=== PATIENT | male | born 1950 | race Caucasian/White ===

== ENCOUNTER 2019-11-12 06:11 | Day surgery (SDC) | payer OTHER ==
[~2019-11-12] VITALS: Ht 182.9 cm; Wt 102.5 kg
[~2019-11-12 06:11] MED LIST: ADULT LOW DOSE81 MG PO; BENTYL 10 MG CA10 M1 PO; CEFDINIR300 MG PO; CIPROFLOXACIN500 M1 PO; CREON DR 24,001 EACH PO; FISHOIL; FLOMAX0.4 MG PO; FLONASE 0.05%50 MCG NARES; LIPITOR40 MG PO; LOSARTAN POTASS50 MG PO; MULTIVITAMINS; NORCO 5-325 TA1 EACH PO; NORVASC10 MG PO; PRINIVIL10 MG PO; PROTONIX40 M1 PO; SIMVASTATIN40 MG PO; TOPAMAX
[2019-11-12 06:35] VITALS: BP 121/79
--- NOTE | 2019-11-12 08:45 | H ---
[facility] [place] [address] HISTORY AND PHYSICAL Name: ADRIANA BHATTI Room #: 150-2 [facility]#: [id number] Admission: 11/12/19 Attend Phys: Gavin Cheney MD Discharge: Date of : 54 Report #: [id number] THIS REPORT FOR: cc: Chris Garcia MD, Michael D. MD Shapiro,Gavin Saleh MD ~ CC: FAM unknown Gavin Cheney His procedure is scheduled for the November 11. HISTORY OF PRESENT ILLNESS: The patient has difficulty breathing through his nose. He has trouble taking deep breaths. He has nasal congestion, clogged sensation, history of nosebleeds. A CT scan of his sinuses shows a severely deviated nasal septum to the right side with mucous membrane thickening in the maxillary and ethmoid sinuses. 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 PAST MEDICAL HISTORY: Otherwise, significant for high blood pressure. MEDICATIONS: Losartan, pantoprazole, atorvastatin, aspirin, amlodipine. ALLERGIES: He has no known drug allergies. PHYSICAL EXAMINATION: He has a severely deviated nasal septum to the right side with the septum almost touching the lateral wall of the nose with some crusting and irritation anteriorly. His oropharynx and oral cavity were clear. IMPRESSION: Nasal airway obstruction with deviated nasal septum with chronic maxillary and ethmoid sinusitis. PLAN: Nasal septoplasty, endoscopic bilateral maxillary antrostomies and anterior ethmoidectomies. <ELECTRONICALLY SIGNED> By: Gavin Cheney MD 11/12/19 0845 [id number] Gavin Cheney MD /nt
[2019-11-12 08:53] VITALS: BP 121/79
--- NOTE | 2019-11-13 07:46 | EKG ---
[facility] [place] [address] ELECTROCARDIOGRAM REPORT Name: ADRIANA BHATTI Room #: DEP [facility]#: [id number] Admission: 11/12/19 Attend Phys: Gavin Cheney MD Discharge: 11/12/19 Date of : 54 Report #: [id number] THIS REPORT FOR: cc: Chris Garcia MD, Michael D. MD Lundgren,Kevin Olsen MD [facility] ~ THIS REPORT FOR: //name// [facility] Test Date: 2019-11-12 Test Time: 07:01:34 Pat Name: ADRIANA BHATTI Department: Room: [facility] 2 Gender: M [employer] Supervisor: DEONTE : 1950 Requested By: Gavin Cheney Order Number: [id number] MD: Kevin Donohue Measurements Intervals [place] Rate: 73 P: 44 NM: 177 QRS: -25 QRSD: 112 T: 29 QT: 396 QTc: 437 Interpretive Statements Sinus rhythm No significant abnormality No previous ECG available for comparison Electronically Signed On 11-13-2019 7:46:00 CDT by Kevin Donohue [email or web address] <ELECTRONICALLY SIGNED> By: Kevin Donohue MD, [facility] 11/13/19 0746 0 0 Kevin Donohue MD, [facility] /EPI
--- NOTE | 2019-11-22 11:02 | O ---
[facility] [place] [address] OPERATIVE REPORT Name: ADRIANA BHATTI Room #: DEP [facility]#: [id number] Admission: 11/12/19 Attend Phys: Gavin Cheney MD Discharge: 11/12/19 Date of : 54 Report #: [id number] THIS REPORT FOR: cc: Chris Garcia MD,Chris Cheney,Gavin Saleh MD ~ CC: Chris Cheney DATE OF SERVICE: 11/12/2019 PREOPERATIVE DIAGNOSES: Deviated nasal septum with nasal airway obstruction, chronic maxillary and ethmoid sinusitis. POSTOPERATIVE DIAGNOSES: Deviated nasal septum with nasal airway obstruction, chronic maxillary and ethmoid sinusitis. OPERATIVE PROCEDURES: Nasal septoplasty, endoscopic bilateral maxillary antrostomies with removal of tissue, bilateral anterior ethmoidectomies. ANESTHESIA: General by laryngeal mask. DESCRIPTION OF PROCEDURE: The patient was taken to the operating room and placed in supine position. General anesthesia was induced by laryngeal mask. Once adequate general anesthesia was obtained, local nasal anesthesia was induced by submucoperichondrial injection of 1% lidocaine with 1:100,000 epinephrine and topical application of cocaine solution. The patient was then draped in a sterile manner. The patient had a nasal septal deviation primarily to the right side. A hemitransfixion incision was placed on the right side of the nose and the mucoperichondrium and mucoperiosteum were elevated off the septum. The cartilage was incised in front of the bony cartilaginous junction and a portion of cartilage and bone was removed from the midportion of the septum. There was septal spur along the floor consisting of hypertrophic cartilage and a fracture of the maxillary crest. The cartilage was removed as a long strip and the maxillary crest was infractured and rongeured. After these maneuvers, the septum sat more in the midline. The hemitransfixion incision was then closed with 4-0 chromic suture and a 4-0 plain mattress suture placed as well. The nasal endoscope was used to visualize the left nasal cavity and the middle turbinate was deviated medially. The uncinate process was removed using the microdebrider and the natural opening of the maxillary sinus was located. It was enlarged in a posterior inferior manner by removing the soft fontanelle. An ethmoidectomy was performed by removing the ethmoidal bulla and then following the air cells back to the basal lamella and then upward at the root of the uncinate process to open up the anterior ethmoid air cells. Surgiflo was placed into the ethmoid cavity and middle meatus for hemostasis. On the right side, the exact same procedure was performed; however, I did not remove the [address] [address] OPERATIVE REPORT Name: ADRIANA BHATTI Room #: DEP [facility] M.R.#: [id number] Admission: 11/12/19 Attend Phys: Gavin Cheney MD Discharge: 11/12/19 Date of : 54 Report #: [id number] ethmoidal bulla as there was fibrous dysplasia in this area. I removed the ethmoid air cells at the root of the uncinate process instead. Surgiflo was placed on the right side as well. The patient tolerated the procedure well. Blood loss was approximately 50 mL. The patient was then awoken and taken to the recovery room in stable condition for postoperative monitoring. <ELECTRONICALLY SIGNED> By: Gavin Cheney MD 11/22/19 1102 [id number] [id number] Gavin Cheney MD /nt
== END 2019-11-12 09:55 | disposition home or self-care (01) ==
LOC: TBA 06:11 → OR 06:11
PROVIDERS: ATTEND Otolaryngology
DX: J34.2 Deviated nasal septum (principal); J34.89 Other specified disorders of nose and nasal sinuses; J32.0 Chronic maxillary sinusitis; J32.2 Chronic ethmoidal sinusitis; I10 Essential (primary) hypertension; E78.5 Hyperlipidemia, unspecified; G47.30 Sleep apnea, unspecified; K21.9 Gastro-esophageal reflux disease without esophagitis; Z98.890 Other specified postprocedural states; Z79.899 Other long term (current) drug therapy; Z87.891 Personal history of nicotine dependence; Z79.82 Long term (current) use of aspirin; Z11.59 Encounter for screening for other viral diseases
CPT/HCPCS: 50010; 50101; 50386; 50398; 51751; 56524; 56528; 56635; 62110; 62900; 70005

== ENCOUNTER → 2020-09-02 | Outpatient (CLI) | payer OTHER | LOC: SJCVC 10:51 | PROVIDERS: ATTEND Internal Medicine | DX: R94.31 Abnormal electrocardiogram [ECG] [EKG] (principal); Z13.220 Encounter for screening for lipoid disorders; I08.3 Combined rheumatic disorders of mitral, aortic and tricuspid valves; I10 Essential (primary) hypertension; R06.00 Dyspnea, unspecified; E78.5 Hyperlipidemia, unspecified; K21.9 Gastro-esophageal reflux disease without esophagitis; Z79.899 Other long term (current) drug therapy; Z79.82 Long term (current) use of aspirin ==

== ENCOUNTER → 2021-01-08 | Outpatient (CLI) | payer OTHER | LOC: SJCVCIMAG 01-05 06:24 | PROVIDERS: ATTEND Internal Medicine | DX: I08.2 Rheumatic disorders of both aortic and tricuspid valves (principal); I10 Essential (primary) hypertension; E78.5 Hyperlipidemia, unspecified; Z79.899 Other long term (current) drug therapy ==